=== PATIENT | female | born 1995 | race Caucasian/White ===

== ENCOUNTER 2021-12-14 13:07 | Inpatient (IN) ==
[2021-12-14] MEDS: LACTATED RINGER'S 1,000 ML IV PRN ×3 (13:15→21:31)
[2021-12-14] MEDS ORDERED: LIDOCAINE 1% LOCAL 20 ML VIAL INFIL PRN (13:37)
[2021-12-14] MEDS ORDERED: OXYTOCIN 30 UNITS/500 ML BAG IV PRN (13:37)
--- NOTE | 2021-12-14 14:06 | History & Physical Report ---
Date of Service December 14, 2021 Assessment & Plan (1) Threatened labor, antepartum: (2) Cervical incompetence: Plan: 26-year-old G1, P0 at 19 weeks and 2 days of gestation presenting with mild spotting and cramping, found to have cervix fully dilated with large amniotic bag bulging, heart rate present, Vital signs stable afebrile, Patient and her understands of findings and appropriately sad, Patient is in Trendelenburg position, expectant management for now, Continue to monitor closely All questions were answered History of Present Illness Primary Care Provider: NO PCP Patient is a 26-year-old G1, P0 at 19 weeks and 2 days of gestation who started to have minimal amount of pink spotting this morning with low back pain and mild cramping. She had ultrasound in the office which showed: Cervix cannot be measured. There is severe bulging membranes which are occupying the entire region of the visualized cervical canal. Findings w orrisome for ruptured membranes and impending delivery IMPRESSION Severe by bulging membranes into the cervical canal worrisome for impending rupture and possible delivery. Correlate clinically. She was not sent up here in ambulance. When she presented to labor and delivery she was comfortable with no complaints other than above which happened this morning. We placed her in Trendelenburg position and repeat the ultrasound bedside. heart rate is around 140s, multiple movement seen, vertex presentation, placenta is in posterior, cervix seems to be open with a large bulging of amniotic bag. Patient had no bleeding or leaking grossly on the external genitalia. After she calmed down she accepted gentle digital exam. With single finger I could see large tight bulging amniotic bag in the vagina, no cervix felt. We discussed the worrisome findings with her and her , they are understanding that delivery can happen anytime and fetus is not viable to survive. They called their screening specialist to come in from [place] for reassurance. Allergies Allergy/AdvReac Type Severity Reaction Status Date / Time amoxicillin Allergy Hives Verified 12/14/21 12:51 Home Medications Medication Instructions Recorded Confirmed Type vitamins no.144-folic 2 tab PO DAILY 12/14/21 12/14/21 History acid 400 mcg chewable tablet () Patient History Social History Smoking Status: Never smoker Preferred Language: Sinhala Feels Safe at Home: Yes [employer] History No h/o STD's, no h/o Chlamydia/ GC/ HSV Review of Systems as per Subjective / HPI Physical Exam Constitutional: WD/WN, vitals as above well developed, well nourished, cooperative and comfortable (Appropriately sad) Genitourinary: normal external appearance see HPI Results & Data ([facility]) Vital Signs (Past 12 Hours) Vital Signs Temp 12/14/21 13:13 37.1 C
[2021-12-14] MEDS ORDERED: BUTORPHANOL TARTRATE 1 MG/ML VIAL ONE (16:21)
[2021-12-14] MEDS: BUTORPHANOL TARTRATE 1 MG/ML VIAL IV PRN ×3 (18:32→23:55)
--- NOTE | 2021-12-14 19:52 | Obstetrical Progress Note ---
Date of Service December 14, 2021 Subjective Patient is reevaluated She had some blood show and was cramping, received Stadol for pain x2 doses. VE unchanged Bed side US: FHR 140's, fetus is moving and legs are in the bulging amniotic bag in vagina. Patient is appropriately sad VSS Afebrile Continue to monitor Results & Data ([facility]) Vital Signs (Past 12 Hours) Vital Signs Temp Pulse Resp BP 12/14/21 14:22 37.1 C 20 12/14/21 18:55 88 12/14/21 18:55 122/55 L 12/14/21 17:55 81 12/14/21 17:55 131/60 12/14/21 16:55 94 H 12/14/21 16:55 135/69 12/14/21 15:12 100 H 12/14/21 15:12 129/68 12/14/21 13:13 37.1 C
--- NOTE | 2021-12-15 00:18 | Obstetrical Progress Note ---
Date of Service December 15, 2021 Subjective Patient felt pressure VE: large bulging amniotic bag lower in vagina, no parts felt Earlier US showed legs in amniotic bag which looked larger, FHR 140's Continue to monitor closely Results & Data ([facility]) Vital Signs (Past 12 Hours) Vital Signs Temp Pulse Resp BP 12/14/21 14:22 37.1 C 20 12/14/21 23:55 16 12/14/21 23:55 36.7 C 16 12/14/21 23:55 78 12/14/21 23:55 131/60 12/14/21 22:55 83 12/14/21 22:55 123/56 L 12/14/21 21:55 88 12/14/21 21:55 116/57 L 12/14/21 21:36 18 12/14/21 21:36 36.7 C 18 12/14/21 20:56 83 12/14/21 20:56 119/56 L 12/14/21 19:55 78 12/14/21 19:55 122/59 L 12/14/21 18:55 88 12/14/21 18:55 122/55 L 12/14/21 17:55 81 12/14/21 17:55 131/60 12/14/21 16:55 94 H 12/14/21 16:55 135/69 12/14/21 15:12 100 H 12/14/21 15:12 129/68 12/14/21 13:13 37.1 C
[2021-12-15] MEDS: LACTATED RINGER'S 1,000 ML IV PRN (03:49)
--- NOTE | 2021-12-15 10:15 | Obstetrical Progress Note ---
Date of Service December 15, 2021 Assessment & Plan (1) Threatened labor, antepartum: (2) Cervical incompetence: Plan incompetent cervix, second trimester monitor closely No active intervention at this time. Admission and Anticipated Discharge Date Admission Date: December 14, 2021 Subjective Patient felt pressure VE: large bulging amniotic bag lower in vagina, no parts felt Earlier US showed legs in amniotic bag which looked larger, FHR 140's Continue to monitor closely Results & Data ([facility]) Vital Signs (Past 12 Hours) Vital Signs Temp Pulse Resp BP 12/15/21 09:55 91 H 139/61 12/15/21 08:56 110 H 137/82 12/15/21 07:55 83 116/55 L 12/15/21 07:30 20 12/15/21 07:30 37.0 C 20 12/15/21 07:27 88 131/63 12/15/21 06:55 88 122/56 L 12/15/21 05:55 85 116/59 L 12/15/21 04:55 95 H 117/57 L 12/15/21 03:56 36.7 C 70 16 118/53 L 12/15/21 02:55 90 130/56 L 12/15/21 01:57 84 112/53 L 12/15/21 00:55 87 120/56 L 12/14/21 23:55 16 12/14/21 23:55 36.7 C 16 12/14/21 23:55 78 12/14/21 23:55 131/60 12/14/21 22:55 83 12/14/21 22:55 123/56 L
[2021-12-15] MEDS ORDERED: OXYTOCIN 30 UNITS/500 ML BAG IV PRN (11:53)
[2021-12-15] MEDS ORDERED: LIDOCAINE 1% LOCAL 20 ML VIAL INFIL PRN (11:53)
[2021-12-15] MEDS: LACTATED RINGER'S 1,000 ML IV SCH (12:15)
[2021-12-15] MEDS: BUTORPHANOL TARTRATE 1 MG/ML VIAL IV PRN ×2 (19:12→22:38)
[2021-12-16] MEDS: BUTORPHANOL TARTRATE 1 MG/ML VIAL IV PRN ×7 (01:24→19:37)
--- NOTE | 2021-12-16 09:51 | Obstetrical Progress Note ---
Date of Service December 16, 2021 Assessment & Plan (1) Threatened labor, antepartum: (2) Cervical incompetence: Plan monitor closely pain meds as needed by the pt. regular diet Colace/stool softener Admission and Anticipated Discharge Date Admission Date: December 14, 2021 Subjective Assessment & Plan (1) Threatened labor, antepartum: (2) Cervical incompetence: Plan incompetent cervix, second trimester monitor closely No active intervention at this time. Admission and Anticipated Discharge Date Admission Date: December 14, 2021 Subjective Patient felt pressure VE: large bulging amniotic bag lower in vagina, no parts felt Earlier US showed legs in amniotic bag which looked larger, FHR 140's Continue to monitor closely Results & Data ([place]) Vital Signs (Past 12 Hours) Vital Signs C Temp Pulse Resp BP 12/15/21 09:55 91 H 139/61 12/15/21 08:56 110 H 137/82 12/15/21 07:55 83 116/55 L 12/15/21 07:30 20 12/15/21 07:30 37.0 C 12/15/21 07:27 88 131/63 12/15/21 06:55 88 122/56 L 12/15/21 05:55 85 116/59 L 12/15/21 04:55 95 H 117/57 L 12/15/21 03:56 36.7 C 70 16 118/53 L 12/15/21 02:55 90 130/56 L 12/15/21 01:57 84 112/53 L 12/15/21 00:55 87 120/56 L 12/14/21 23:55 16 12/14/21 23:55 36.7 C 16 12/14/21 23:55 78 12/14/21 23:55 131/60 12/14/21 22:55 83A 12/14/21 22:55 123/56 L Results & Data ([place]) Vital Signs (Past 12 Hours) Vital Signs Temp Pulse Resp BP 12/16/21 07:40 36.9 C 20 12/16/21 07:40 81 117/56 L 12/16/21 04:04 16 12/16/21 04:04 36.7 C 73 16 129/60 12/15/21 22:34 37.0 C 83 16 124/64
[2021-12-16 15:54] LABS: Hematocrit (blood only) 37.8 % (34.1-44.9); Hemoglobin 12.9 g/dl (12.0-16.0); Mean Corpuscular Hemoglobin 30.9 pg (25.0-34.0); Mean Corpuscular Hgb Conc 34.1 g/dL (32.0-36.0); Mean Corpuscular Volume 90.4 fL (80.0-100.0); Platelet Count 210 K/uL (130-400); RDW Coefficient of Variation 14.3 % (11.5-14.5); RDW Standard Deviation 47.8 fL (36.4-46.3); Red Blood Count 4.18 M/uL (3.93-5.22); White Blood Count 13.15 K/ul (4.8-10.8)
[2021-12-16] MEDS: DOCUSATE SODIUM 100 MG CAP PO SCH ×2 (16:08→21:23)
[2021-12-16] MEDS ORDERED: ZOLPIDEM TARTRATE 10 MG TAB PO PRN (19:55)
[2021-12-17] MEDS: BUTORPHANOL TARTRATE 1 MG/ML VIAL IV PRN ×6 (02:49→21:20)
[2021-12-17] MEDS: DOCUSATE SODIUM 100 MG CAP PO SCH ×2 (09:09→21:21)
--- NOTE | 2021-12-17 10:00 | Obstetrical Progress Note ---
Date of Service December 17, 2021 Assessment & Plan Admission and Anticipated Discharge Date Admission Date: December 14, 2021 Subjective Patient is seen in her room. She feels well, complains other than being sad. No contractions, cramping, abdominal or back pain. No leakage of fluid or vaginal bleeding. No headaches, change in her vision, nausea vomiting, fever or chills. She has been eating normally and drinking. She has been voiding without difficulty but has not moved her bowels yet. She used to get constipated and use Colace and MiraLAX. She feels baby move. I offered her ultrasound and she accepted. Bedside ultrasound revealed heart rate of 140s, extremities and trunk is in the sac in the vagina, head is in the uterus. Fetus is moving. I spoke with MFM at [facility] and they recommended expectant management until 22 weeks and 5 days if she will stay . Start steroids and transfer to them. Patient understands all and declines mental health consultation. Encouraged to move her extremities, it is okay to move her bowels All questions were answered. Results & Data ([facility]) Vital Signs (Past 12 Hours) Vital Signs Temp Pulse Resp BP 12/17/21 08:00 36.9 C 20 12/17/21 05:23 36.8 C 16 12/17/21 08:00 76 119/56 L 12/17/21 05:22 76 106/53 L 12/16/21 23:17 36.8 C 71 18 112/51 L
[2021-12-17] MEDS: PRENATAL VITAMIN 1 TAB PO SCH (10:17)
[2021-12-17] MEDS: POLYETHYLENE (MIRALAX) 17 GM PACK PO SCH (10:58)
[2021-12-17] MEDS: ACETAMINOPHEN 325 MG TAB PO PRN ×4 (11:01→23:54)
[2021-12-17 12:35] LABS: Appearance Urine Clear (Clear); Bacteria Urine Automated 1+ (Negative); Bilirubin Urine Negative (Negative); Blood Urine 2+ (Negative); Color Urine Yellow; Epithelial Cell Urine Auto >30 /lpf (0-5); Glucose Urine UA 1+ (Negative); Ketones Urine Negative (Negative); Leukocyte Esterase Urine 2+ (Negative); Nitrite Urine Negative (Negative); Protein Urine Negative (Negative); RBC Urine Automated 0-4 /hpf (0-4); Specific Gravity Urine 1.008 (1.000-1.030); Urobilinogen Urine Negative (Negative); pH Urine 6.5 (4.5-7.5)
[2021-12-17] MEDS ORDERED: bisacodyL 5 MG TABEC PO PRN (16:50)
--- NOTE | 2021-12-17 16:56 | Obstetrical Progress Note ---
Date of Service December 17, 2021 Assessment & Plan Admission and Anticipated Discharge Date Admission Date: December 14, 2021 Subjective Patient c/o gas pain No VB/ LOF/ Vaginal nor rectal pressure Has been passing gas but not moved her bowels yet Has been tolerating regular diet u/a suggesting UTI Allergic to Amoxicillin, rash but has used Keflex in the past Abd soft, suprapubic tenderness+ Perineum intact no bulge or Plan to add Dulcolax for constipation and Keflex for UTI PO Pain meds Continue to monitor closely Results & Data ([facility]) Vital Signs (Past 12 Hours) Vital Signs Temp Pulse Resp BP 12/17/21 08:00 36.9 C 20 12/17/21 05:23 36.8 C 16 12/17/21 12:16 36.8 C 80 20 118/62 12/17/21 08:00 76 119/56 L 12/17/21 05:22 76 106/53 L
[2021-12-17] MEDS: traMADol HCL 50 MG TABLET PO PRN ×2 (18:11→21:52)
[2021-12-17] MEDS: cephALEXin 500 MG CAP PO SCH (21:26)
--- NOTE | 2021-12-18 00:30 | Obstetrical Progress Note ---
Date of Service December 18, 2021 Assessment & Plan Admission and Anticipated Discharge Date Admission Date: December 14, 2021 Subjective Patient has been having more pain for the last hour or so, now she is rating is 10 out of 10 we did not feel pressure in vagina and rectum. She tried to void but unable she did not pass and a small amount of pink discharge on the bedpan? From vagina which was positive on the nitrazine paper. Patient is very anxious and crying and asking multiple questions and states I do not know what to do/I do know what can happen. Myself and nursing staff has been with her all the time answering her questions and reassuring with their sincerity. I performed a bedside ultrasound which showed that the uterus has placenta and it, no parts in the uterine cavity, fetus is seen complete the vagina, heart rate is about 130s. I offered her vaginal exam and she accepted. Within both nurses holding her hands and reassuring her I performed a gentle 1 finger digital exam eleazar soft smaller bag in the lower vagina with parts in it, head/small parts. We discussed the option of pain management with either IV narcotics or epidural or spinal or conscious sedation. We discussed option of waiting versus pushing and delivering the baby and then placenta. Patient states she is ready, she is done and wants to push and deliver the baby. After long discussion patient decided to get epidural and then proceed with delivery. We will transfer her to labor and delivery, anesthesia and obtain more blood work. All questions were answered. Results & Data ([facility]) Vital Signs (Past 12 Hours) Vital Signs Temp Pulse Resp BP Pulse Ox O2 Del Method 12/17/21 19:30 36.6 C 89 18 110/68 96 Room Air 12/17/21 17:45 37.1 C 76 18 108/67 97 Room Air
[2021-12-18] MEDS ORDERED: fentaNYL citrate 100 MCG/2 ML VIAL ONE (00:36)
[2021-12-18] MEDS ORDERED: BUPIVACAINE 0.25% 30 ML VIAL ONE (00:36)
[2021-12-18] MEDS ORDERED: SODIUM CHLORIDE 0.9% INJ 10 ML VIAL ONE (00:36)
[2021-12-18] MEDS ORDERED: ePHEDrine sulfate 50 MG/ML AMP ONE (00:36)
[2021-12-18] MEDS ORDERED: LIDOCAINE 2%/EPINEPHRINE 1:200,000 20 ML SDV ONE (00:37)
[2021-12-18] MEDS ORDERED: fentaNYL 2MCG/ML ROPIVACAINE 1.25MG/ML 100 ML BAG EPI ONE (00:37)
[2021-12-18 00:52] LABS: Basophils # (auto) 0.06 K/uL (0-0.2); Basophils % (auto) 0.4 %; Eosinophils # (auto) 0.11 K/uL (0-0.50); Eosinophils % (auto) 0.7 %; Hematocrit (blood only) 41.7 % (34.1-44.9); Hemoglobin 14.3 g/dl (12.0-16.0); Immature Granulocytes # (auto) 0.07 K/uL (0.00-0.02); Immature Granulocytes % (auto) 0.5 %; Lymphocytes # (auto) 2.11 K/uL (1.2-3.4); Lymphocytes % (auto) 14.1 %; Mean Corpuscular Hemoglobin 30.5 pg (25.0-34.0); Mean Corpuscular Hgb Conc 34.3 g/dL (32.0-36.0); Mean Corpuscular Volume 88.9 fL (80.0-100.0); Mean Platelet Volume 10.7 fL (9.4-12.3); Monocytes # (auto) 0.88 K/uL (0.24-0.82); Monocytes % (auto) 5.9 %; Neutrophils # (auto) 11.74 K/uL (1.4-6.5); Neutrophils % (auto) 78.4 %; Platelet Count 235 K/uL (130-400); RDW Coefficient of Variation 14.1 % (11.5-14.5); RDW Standard Deviation 45.5 fL (36.4-46.3); Red Blood Count 4.69 M/uL (3.93-5.22); White Blood Count 14.97 K/ul (4.8-10.8)
[2021-12-18] MEDS: LACTATED RINGER'S 1,000 ML IV SCH ×2 (00:53→03:11)
[2021-12-18] MEDS ORDERED: LORazepam 0.25 MG in SYRINGE 0 ML IV STA (00:58)
[2021-12-18 01:03] LABS: Partial Thromboplastin Time 27.5 Seconds (21.0-31.0); Prothrombin Time 10.5 Seconds (9.0-12.0)
[2021-12-18 01:09] LABS: Albumin Level 3.7 gm/dl (3.4-5.0); BUN Creatinine Ratio 13.3 (10-20); Bilirubin,Total 0.4 mg/dl (0.2-1.0); Calcium 9.3 mg/dl (8.5-10.1); Creatinine Clr Calc Pharmacy 167.2 ml/min; Est GFR (African American) 147.9 ml/min; Est GFR (Non-African American) 127.6 ml/min; Globulin 3.7 gm/dl (2.5-4.0); Potassium 3.6 mmol/L (3.5-5.1); Total Protein 7.4 gm/dl (6.0-8.3)
[2021-12-18] MEDS ORDERED: NALOXONE HCL 0.4 MG/1 ML VIAL/CARP IV PRN (01:31)
[2021-12-18] MEDS ORDERED: diphenhydrAMINE 50 MG/ML VIAL IV PRN ×2 (01:31→01:58)
[2021-12-18] MEDS ORDERED: ONDANSETRON INJ 2 MG/ML 2 ML VIAL IV PRN ×2 (01:31→01:58)
[2021-12-18] MEDS ORDERED: fentaNYL 2MCG/ML ROPIVACAINE 1.25MG/ML 100 ML BAG EPI PRN (01:31)
[2021-12-18] MEDS ORDERED: NALOXONE HCL 1 MG in SODIUM CHLORIDE 0.9% 1000ML 1,000 ML IV PRN (01:31)
[2021-12-18] MEDS ORDERED: NALBUPHINE HCL INJ 10 MG/ML AMP IV PRN (01:31)
[2021-12-18] MEDS ORDERED: ePHEDrine sulfate 50 MG/ML AMP IV PRN (01:31)
--- NOTE | 2021-12-18 01:31 | Anesthesiology Consultation ---
Date of Service December 18, 2021 Assessment & Plan ASA ASA2 Proposed Anesthesia Anesthesia Type: Labor Epidural Risk / Benefits Reviewed With: PT / POA / Parent / Guardian, Accepts Plan and Informed Consent Obtained History Height/Weight Height: 5 ft 7 in Weight: 90.718 kg Allergies Allergy/AdvReac Type Severity Reaction Status Date / Time amoxicillin Allergy Hives Verified 12/14/21 12:51 Medications Home Medications Medication Instructions Recorded Confirmed Last Taken vitamins no.144-folic 2 tab PO DAILY 12/14/21 12/14/21 12/13/21 21:00 acid 400 mcg chewable tablet () Active Medications Generic Name Dose Route Start Last Admin Trade Name Freq PRN Reason Stop Dose Admin Acetaminophen 650 mg 12/17/21 10:00 12/17/21 23:54 Acetaminophen 325 Mg Tab PO 01/16/22 09:59 650 mg Q4H PRN Administration Pain Butorphanol Tartrate 1 mg 12/14/21 16:19 12/17/21 21:20 Butorphanol Tartrate 1 Mg/Ml Vial IV 01/13/22 16:18 1 mg Q2R PRN Administration Pain Cephalexin HCl 500 mg 12/17/21 21:00 12/17/21 21:26 Cephalexin 500 Mg Cap PO 12/22/21 20:59 500 mg Q6H MAXIMO Administration Docusate Sodium 100 mg 12/16/21 16:00 12/17/21 21:21 Docusate Sodium 100 Mg Cap PO 01/15/22 15:59 100 mg BID MAXIMO Administration Lactated Ringer's 1,000 mls @ 125 mls/hr 12/15/21 12:15 12/18/21 00:53 Lr IV 01/14/22 12:14 999 mls/hr .Q8H MAXIMO Administration Polyethylene Glycol 17 gm 12/17/21 10:15 12/17/21 10:58 Polyethylene (Miralax) 17 Gm Pack PO 01/16/22 10:14 17 gm DAILY MAXIMO Administration Prenat Multivit/Tire Buffer/Iron/Folic Ac 1 tab 12/17/21 10:15 12/17/21 10:17 Vitamin 1 Tab PO 01/16/22 10:14 1 tab QAM MAXIMO Administration Tramadol HCl 50 mg 12/17/21 16:49 12/17/21 21:52 Tramadol Hcl 50 Mg Tablet PO 01/16/22 16:48 50 mg Q4H PRN Administration Pain Zolpidem Tartrate 10 mg 12/16/21 19:55 12/16/21 23:17 Zolpidem Tartrate 10 Mg Tab PO 01/15/22 19:54 10 mg HS PRN Administration Sleep Exercise / Class Metabolic Activity II 4-5 Yardwork/Stairs/Walk up hill Past Surgical History Surgical History Hx of shoulder surgery right shoulder 2015 [place] teeth removed 2017 Past Anesthesia History No Hx of Anesthesia Complications and No Family Hx of Anesthesia Complications History of PONV No Hx of PONV and No Hx of Motion Sickness Social History Smoking Status: Never smoker Hx Alcohol Use: No Hx Substance Use: No Review of Systems denies fever/cough/ colds/ chest pain/ SOB/ MORA denies MORA Physical Exam Vital Signs Last Vital Signs Temp 37.0 C 12/18/21 00:41 Pulse 84 12/18/21 01:25 Resp 20 12/18/21 00:41 BP 130/60 12/18/21 01:25 Pulse Ox 100 12/18/21 01:25 O2 Del Method 12/17/21 19:30 ENMT Mouth: no TMJ abnormality and no dentition abnormality Thyromental Distance: > or= 3.5 Finger Breadths Mallampati Class: II Neck neck extension not limited Respiratory normal respiratory effort; no respiratory distress Auscultation: lungs clear to auscultation bilaterally Cardiovascular Rate/Rhythm: regular rate and regular rhythm Neurologic moves all extremities Psychiatric Orientation: alert and oriented x 3 Testing Laboratory Results 12/18/21 00:39 12/18/21 00:39 PT 10.5 Seconds (9.0-12.0) 12/18/21 00:39 INR 1.0 (0.9-1.1) 12/18/21 00:39 APTT 27.5 Seconds (21.0-31.0) 12/18/21 00:39 Urine Color Yellow 12/17/21 Unknown Urine Appearance Clear (Clear) 12/17/21 Unknown Urine pH 6.5 (4.5-7.5) 12/17/21 Unknown Ur Specific [place] 1.008 (1.000-1.030) 12/17/21 Unknown Urine Protein Negative (Negative) 12/17/21 Unknown Urine Glucose (UA) 1+ (Negative) H 12/17/21 Unknown Urine Ketones Negative (Negative) 12/17/21 Unknown Urine Nitrite Negative (Negative) 12/17/21 Unknown Ur Leukocyte Esterase 2+ (Negative) H 12/17/21 Unknown Urine WBC (Auto) 5-10 /hpf (0-5) H 12/17/21 Unknown Urine RBC (Auto) 0-4 /hpf (0-4) 12/17/21 Unknown U Hyaline Cast (Auto) 1-5 /lpf (0-5) 12/17/21 Unknown U Epithel Cells (Auto) >30 /lpf (0-5) H 12/17/21 Unknown Urine Bacteria (Auto) 1+ (Negative) H 12/17/21 Unknown Blood Type A Positive 12/14/21 12:54 Antibody Screen NEGATIVE 12/14/21 12:54
[2021-12-18] MEDS ORDERED: LORazepam 0.5 MG in SYRINGE 0 ML IV PRN (01:57)
--- NOTE | 2021-12-18 01:57 | Obstetrical Progress Note ---
Date of Service December 18, 2021 Assessment & Plan Admission and Anticipated Discharge Date Admission Date: December 14, 2021 Subjective Patient is reevaluated. She has received epidural for pain and now comfortable. She does not feel urge to push. No LOF/VB She does not want pelvic exam and desires expectant management for now. Earlier perineum Nitrazine test was negative. Offered her Lorazepam for anxiety but she declined. She desires to rest for now. Lab Results 12/14/21 12/16/21 12/17/21 Range/Units 12:54 15:45 Unknown WBC 13.15 H (4.8-10.8) K/ul RBC 4.18 (3.93-5.22) M/uL Hgb 12.9 (12.0-16.0) g/dl Hct 37.8 (34.1-44.9) % MCV 90.4 (80.0-100.0) fL MCH 30.9 (25.0-34.0) pg MCHC 34.1 (32.0-36.0) g/dL RDW Std Deviation 47.8 H (36.4-46.3) fL RDW Coeff of Rod 14.3 (11.5-14.5) % Plt Count 210 (130-400) K/uL MPV 11.0 (9.4-12.3) fL Immature Gran % (Auto) % Neut % (Auto) % Lymph % (Auto) % [place] % (Auto) % Eos % (Auto) % Baso % (Auto) % Neut # (Auto) (1.4-6.5) K/uL Lymph # (Auto) (1.2-3.4) K/uL [place] # (Auto) (0.24-0.82) K/uL Eos # (Auto) (0-0.50) K/uL Baso # (Auto) (0-0.2) K/uL Immature Gran # (Auto) (0.00-0.02) K/uL PT (9.0-12.0) Seconds INR (0.9-1.1) APTT (21.0-31.0) Seconds PTT Ratio Sodium (136-145) mmol/L Potassium (3.5-5.1) mmol/L Chloride (98-107) mmol/L Carbon Dioxide (21-32) mmol/L Anion Gap (3-11) BUN (6-23) mg/dl Creatinine (0.6-1.2) mg/dl Est Cr Clr Drug Dosing ml/min Est GFR ( Amer) ml/min Est GFR (Non-Af Amer) ml/min BUN/Creatinine Ratio (10-20) Glucose (70-99(Fasting)) mg/dl Lactate (0.4-2.0) mmol/L Calcium (8.5-10.1) mg/dl Total Bilirubin (0.2-1.0) mg/dl AST (13-39) U/L ALT (7-52) U/L Alkaline Phosphatase (34-104) U/L Total Protein (6.0-8.3) gm/dl Albumin (3.4-5.0) gm/dl Globulin (2.5-4.0) gm/dl Albumin/Globulin Ratio (0.9-2) Urine Color Yellow Urine Appearance Clear (Clear) Urine pH 6.5 (4.5-7.5) Ur Specific [place] 1.008 (1.000-1.030) Urine Protein Negative (Negative) Urine Glucose (UA) 1+ H (Negative) Urine Ketones Negative (Negative) Urine Blood 2+ H (Negative) Urine Nitrite Negative (Negative) Urine Bilirubin Negative (Negative) Urine Urobilinogen Negative (Negative) Ur Leukocyte Esterase 2+ H (Negative) Urine WBC (Auto) 5-10 H (0-5) /hpf Urine RBC (Auto) 0-4 (0-4) /hpf U Hyaline Cast (Auto) 1-5 (0-5) /lpf U Epithel Cells (Auto) >30 H (0-5) /lpf Urine Bacteria (Auto) 1+ H (Negative) Blood Type A Positive Antibody Screen NEGATIVE 12/18/21 12/18/21 12/18/21 Range/Units 00:39 00:39 00:39 WBC 14.97 H (4.8-10.8) K/ul RBC 4.69 (3.93-5.22) M/uL Hgb 14.3 (12.0-16.0) g/dl Hct 41.7 (34.1-44.9) % MCV 88.9 (80.0-100.0) fL MCH 30.5 (25.0-34.0) pg MCHC 34.3 (32.0-36.0) g/dL RDW Std Deviation 45.5 (36.4-46.3) fL RDW Coeff of Rod 14.1 (11.5-14.5) % Plt Count 235 (130-400) K/uL MPV 10.7 (9.4-12.3) fL Immature Gran % (Auto) 0.5 % Neut % (Auto) 78.4 % Lymph % (Auto) 14.1 % [place] % (Auto) 5.9 % Eos % (Auto) 0.7 % Baso % (Auto) 0.4 % Neut # (Auto) 11.74 H (1.4-6.5) K/uL Lymph # (Auto) 2.11 (1.2-3.4) K/uL [place] # (Auto) 0.88 H (0.24-0.82) K/uL Eos # (Auto) 0.11 (0-0.50) K/uL Baso # (Auto) 0.06 (0-0.2) K/uL Immature Gran # (Auto) 0.07 H (0.00-0.02) K/uL PT 10.5 (9.0-12.0) Seconds INR 1.0 (0.9-1.1) APTT 27.5 (21.0-31.0) Seconds PTT Ratio 1.0 Sodium (136-145) mmol/L Potassium (3.5-5.1) mmol/L Chloride (98-107) mmol/L Carbon Dioxide (21-32) mmol/L Anion Gap (3-11) BUN (6-23) mg/dl Creatinine (0.6-1.2) mg/dl Est Cr Clr Drug Dosing ml/min Est GFR ( Amer) ml/min Est GFR (Non-Af Amer) ml/min BUN/Creatinine Ratio (10-20) Glucose (70-99(Fasting)) mg/dl Lactate 1.1 (0.4-2.0) mmol/L Calcium (8.5-10.1) mg/dl Total Bilirubin (0.2-1.0) mg/dl AST (13-39) U/L ALT (7-52) U/L Alkaline Phosphatase (34-104) U/L Total Protein (6.0-8.3) gm/dl Albumin (3.4-5.0) gm/dl Globulin (2.5-4.0) gm/dl Albumin/Globulin Ratio (0.9-2) Urine Color Urine Appearance (Clear) Urine pH (4.5-7.5) Ur Specific [place] (1.000-1.030) Urine Protein (Negative) Urine Glucose (UA) (Negative) Urine Ketones (Negative) Urine Blood (Negative) Urine Nitrite (Negative) Urine Bilirubin (Negative) Urine Urobilinogen (Negative) Ur Leukocyte Esterase (Negative) Urine WBC (Auto) (0-5) /hpf Urine RBC (Auto) (0-4) /hpf U Hyaline Cast (Auto) (0-5) /lpf U Epithel Cells (Auto) (0-5) /lpf Urine Bacteria (Auto) (Negative) Blood Type Antibody Screen 12/18/21 Range/Units 00:39 WBC (4.8-10.8) K/ul RBC (3.93-5.22) M/uL Hgb (12.0-16.0) g/dl Hct (34.1-44.9) % MCV (80.0-100.0) fL MCH (25.0-34.0) pg MCHC (32.0-36.0) g/dL RDW Std Deviation (36.4-46.3) fL RDW Coeff of Rod (11.5-14.5) % Plt Count (130-400) K/uL MPV (9.4-12.3) fL Immature Gran % (Auto) % Neut % (Auto) % Lymph % (Auto) % [place] % (Auto) % Eos % (Auto) % Baso % (Auto) % Neut # (Auto) (1.4-6.5) K/uL Lymph # (Auto) (1.2-3.4) K/uL [place] # (Auto) (0.24-0.82) K/uL Eos # (Auto) (0-0.50) K/uL Baso # (Auto) (0-0.2) K/uL Immature Gran # (Auto) (0.00-0.02) K/uL PT (9.0-12.0) Seconds INR (0.9-1.1) APTT (21.0-31.0) Seconds PTT Ratio Sodium 136 (136-145) mmol/L Potassium 3.6 (3.5-5.1) mmol/L Chloride 103 (98-107) mmol/L Carbon Dioxide 24 (21-32) mmol/L Anion Gap 9 (3-11) BUN 8 (6-23) mg/dl Creatinine 0.60 (0.6-1.2) mg/dl Est Cr Clr Drug Dosing 167.2 ml/min Est GFR ( Amer) 147.9 ml/min Est GFR (Non-Af Amer) 127.6 ml/min BUN/Creatinine Ratio 13.3 (10-20) Glucose 103 H (70-99(Fasting)) mg/dl Lactate (0.4-2.0) mmol/L Calcium 9.3 (8.5-10.1) mg/dl Total Bilirubin 0.4 (0.2-1.0) mg/dl AST 12 L (13-39) U/L ALT 21 (7-52) U/L Alkaline Phosphatase 73 (34-104) U/L Total Protein 7.4 (6.0-8.3) gm/dl Albumin 3.7 (3.4-5.0) gm/dl Globulin 3.7 (2.5-4.0) gm/dl Albumin/Globulin Ratio 1.0 (0.9-2) Urine Color Urine Appearance (Clear) Urine pH (4.5-7.5) Ur Specific [place] (1.000-1.030) Urine Protein (Negative) Urine Glucose (UA) (Negative) Urine Ketones (Negative) Urine Blood (Negative) Urine Nitrite (Negative) Urine Bilirubin (Negative) Urine Urobilinogen (Negative) Ur Leukocyte Esterase (Negative) Urine WBC (Auto) (0-5) /hpf Urine RBC (Auto) (0-4) /hpf U Hyaline Cast (Auto) (0-5) /lpf U Epithel Cells (Auto) (0-5) /lpf Urine Bacteria (Auto) (Negative) Blood Type Antibody Screen VSS Afebrile Gil to drain bladder Keflex PO Continue to monitor closely. Results & Data ([facility]) Vital Signs (Past 12 Hours) Vital Signs Temp Pulse Pulse Resp BP BP Pulse Ox 12/17/21 19:30 36.6 C 89 18 110/68 96 12/17/21 17:45 37.1 C 76 18 108/67 97 12/18/21 01:50 82 99 12/18/21 01:45 90 12/18/21 01:45 77 137/68 100 12/18/21 01:40 84 100 12/18/21 01:35 97 H 100 12/18/21 01:30 81 132/63 98 12/18/21 01:25 100 12/18/21 01:25 84 12/18/21 01:25 82 130/60 12/18/21 01:23 82 122/80 12/18/21 01:20 91 H 100 12/18/21 01:15 96 H 100 12/18/21 01:10 95 H 100 12/18/21 01:05 91 H 100 12/18/21 01:00 89 100 12/18/21 00:55 89 100 12/18/21 00:50 88 100 12/18/21 00:45 89 100 12/18/21 00:41 37.0 C 90 20 137/74 O2 Del Method 12/17/21 19:30 Room Air 12/17/21 17:45 Room Air 12/18/21 01:50 12/18/21 01:45 12/18/21 01:45 12/18/21 01:40 12/18/21 01:35 12/18/21 01:30 12/18/21 01:25 12/18/21 01:25 12/18/21 01:25 12/18/21 01:23 12/18/21 01:20 12/18/21 01:15 12/18/21 01:10 12/18/21 01:05 12/18/21 01:00 12/18/21 00:55 12/18/21 00:50 12/18/21 00:45 12/18/21 00:41
[2021-12-18] MEDS: cephALEXin 500 MG CAP PO SCH (03:27)
--- NOTE | 2021-12-18 10:22 | Delivery Summary ---
Vaginal Delivery Summary Date of Service December 18, 2021 Vaginal Delivery Summary Delivery Note male in vertex presentation at 19.5 weeks pre-viable and comfort measures were done. Apgars to be determined. Baby with no visible congenital malformations noted. Final sponge and instrument count are corrected. Placenta delivered spontaneously and intact. No tears. EBL 100 ml. Mother stable and baby with dad for comfort care only.
[2021-12-18] MEDS ORDERED: DIPHTHERIA/TETANUS/PERTUSSIS 0.5 ML SYR/VIAL IM ONE (11:40)
[2021-12-18] MEDS ORDERED: ACETAMINOPHEN 325 MG TAB PO PRN (11:40)
[2021-12-18] MEDS ORDERED: HYDROCORTISONE ACETATE 25 MG SUPP PR PRN (11:40)
[2021-12-18] MEDS ORDERED: BENZOCAINE 20% AER SPR 82.5 GM CAN EXT PRN (11:40)
[2021-12-18] MEDS ORDERED: OXYTOCIN 30 UNITS/500 ML BAG IV PRN (11:40)
[2021-12-18] MEDS ORDERED: bisacodyL 10 MG SUPP PR PRN (11:40)
[2021-12-18] MEDS ORDERED: IBUPROFEN 600 MG TAB PO PRN (11:40)
--- NOTE | 2021-12-18 11:40 | Anesthesia Procedure Note ---
Date of Service December 18, 2021 Anesthesia Post Epidural Note Vital Signs Vital Signs: Temp Pulse Resp BP Pulse Ox O2 Del Method 36.9 C 86 20 133/67 97 12/18/21 07:00 12/18/21 11:25 12/18/21 07:00 12/18/21 11:25 12/18/21 09:50 12/18/21 07:00 Pain Intensity Back: Pain Intensity: 0 Notes Mental Status: alert / awake / arousable and participated in evaluation Nausea / Vomiting: adequately controlled Pain: adequately controlled Airway Patency, RR, SpO2: stable & adequate BP & HR: stable & adequate Hydration State: stable & adequate Neuraxial Anesthesia: was administered and sensory block resolved Anesthetic Complications: no major complications apparent Epidural: Removed without complications and With tip intact
[2021-12-18] MEDS: DOCUSATE SODIUM 100 MG CAP PO SCH ×2 (13:56→22:52)
[2021-12-18] MEDS: PRENATAL VITAMIN 1 TAB PO SCH (13:56)
[2021-12-18] MEDS: POLYETHYLENE (MIRALAX) 17 GM PACK PO SCH (13:56)
[2021-12-18] MEDS ORDERED: DOCUSATE SODIUM 100 MG CAP PO SCH (21:00)
[2021-12-19 06:50] LABS: Hematocrit (blood only) 32.2 % (34.1-44.9); Mean Corpuscular Hemoglobin 30.6 pg (25.0-34.0); Mean Corpuscular Hgb Conc 34.2 g/dL (32.0-36.0); Mean Corpuscular Volume 89.7 fL (80.0-100.0); Mean Platelet Volume 10.8 fL (9.4-12.3); Platelet Count 181 K/uL (130-400); Red Blood Count 3.59 M/uL (3.93-5.22); White Blood Count 9.37 K/ul (4.8-10.8)
[2021-12-19] MEDS ORDERED: FERROUS SULFATE 325 MG TAB PO SCH (08:00)
[2021-12-19] MEDS ORDERED: PRENATAL VITAMIN 1 TAB PO SCH (08:00)
--- NOTE | 2021-12-19 08:05 | Obstetrical Progress Note ---
Date of Service December 19, 2021 Assessment & Plan (1) demise: s/p demise at 17 + weeks pt doing well d/c home with instructions today Results & Data ([facility]) Vital Signs (Past 12 Hours) Vital Signs Temp Pulse Resp BP 12/19/21 04:15 36.8 C 16 12/19/21 00:30 36.7 C 16 12/19/21 04:18 71 111/58 L 12/19/21 00:35 70 115/61
[2021-12-19] MEDS ORDERED: NON-FORMULARY MEDICATION (Prenatal No.144-Folic Acid [Prenatal] 400 mcg Tablet,Chewable) PO SCH (09:00)
[2021-12-19] MEDS ORDERED: bisacodyL 5 MG TABEC PO SCH (20:00)
--- NOTE | 2021-12-20 01:45 | Discharge Summary (DS) ---
DATE OF ADMISSION: 12/14/2021. DATE OF DISCHARGE: 12/19/2021. CHIEF COMPLAINT/HISTORY OF PRESENT ILLNESS: This is a 26-year-old G1, P0 at 19 weeks and 2 days who presented to labor and delivery through the ER for labor evaluation. She was found to be ful ly dilated. The patient was admitted and went on to deliver. demise on 12/18/2021. The patie nt has done well and is being discharged home today in stable condition. PAST MEDICAL HISTORY: No history of diabetes, hypertension, or asthma. PAST SURGICAL HISTORY: History of shoulder surgery and dental surgery. FAMILY HISTORY: Noncontributory. SOCIAL HISTORY: The patient denies tobacco, drug or alcohol use. ALLERGIES: Amoxicillin. REVIEW OF SYSTEMS: Negative except as dictated in the HPI. GENERAL: Well-developed, well-nourished white female in no acute distress. VITAL SIGNS: Blood pressure 111/58, pulse 71, respirations 16, temperature 36.8. HEART: S1 and S2, regular rhythm and rate. LUNGS: Clear to auscultation bilaterally. ABDOMEN: Nontender, nondistended. Uterus is firm. EXTREMITIES: No cyanosis, clubbing or edema. LABORATORY DATA: Hemoglobin is 11.0, hematocrit 32.2, platelets 181. CONDITION ON DISCHARGE: Stable. OPERATIONS: None. DISCHARGE DIAGNOSES: Status post demise for cervical incompetence at 19 weeks' gestation. PLAN ON DISCHARGE: The patient is discharged home with instructions regarding activity, diet, and [facility] appointment. Job ID: [id number]
== END 2021-12-19 12:40 | disposition home or self-care (01) | DRG 805 ==
LOC: OPB 13:07 → 4S1 13:13 → 4E2 12-17 18:19 → 4S1 12-18 00:32

== ENCOUNTER 2024-02-03 09:14 | Inpatient (IN) ==
[2024-02-03] MEDS ORDERED: LIDOCAINE 1% LOCAL 20 ML VIAL INFIL PRN (09:59)
[2024-02-03] MEDS ORDERED: OXYTOCIN 30 UNITS/NSS 30 UNITS/500 ML BAG IV PRN ×2 (09:59→17:01)
[2024-02-03] MEDS: SODIUM CHLORIDE 0.9% 1,000 ML IV SCH (10:05)
--- NOTE | 2024-02-03 10:12 | History & Physical Report ---
Date of Service February 03, 2024 Assessment & Plan (1) : Plan: Admit to L&D. EFM/toco, hourly glucose. OK for epidural when she desires. History of Present Illness Chief Complaint: labor Primary Care Provider: CHRISTINA Colin 28yo @ 39 02/23, contractions overnight. + movement, small amount of vaginal bleeding. No leaking. and Delivery Plans Incompetent cervix with delivery/ demise at 19weeks in prior (2021) *Cerclage scheduled 08/11, note says no further cervical lengths after Rubella non-immune offer vaccine Hep B non-immune *offer Hep B vaccine series Obesity (BMI between 35-39 @ beginning of ) *Growth US @ 32 wks *Weekly NSTs @ 36wks Gestational Diabetes Growth u/s's q 4 weeks Allergies Allergy/AdvReac Type Severity Reaction Status Date / Time amoxicillin Allergy Hives Verified 01/26/24 13:14 Home Medications Medication Instructions Recorded Confirmed Type vitamins no.144-folic 2 tab PO DAILY 12/14/21 02/03/24 History acid 400 mcg chewable tablet () escitalopram oxalate 20 mg tablet 20 mg PO DAILY #90 tabs 10/23/23 02/03/24 Rx (Lexapro) acetone (urine) test (Ketone Urine #50 ea 12/15/23 02/02/24 Rx Test strips) lancets 33 gauge (OneTouch Delica #150 ea 12/15/23 02/02/24 Rx Plus Lancet) blood sugar diagnostic (FreeStyle #400 ea 12/16/23 02/02/24 Rx Lite Strips) blood-glucose meter (FreeStyle #1 ea 12/16/23 02/02/24 Rx [place] Lite kit) lancets 28 gauge (FreeStyle #100 ea 12/18/23 02/02/24 Rx Lancets) Patient History Medical History (Updated 02/03/24 @ 10:10 by Anahi Castorena DO) Cervical incompetence Varicella vaccination Abnormal uterine bleeding (AUB) demise Threatened labor, antepartum Surgical History History of cervical cerclage S/P tonsillectomy [place] teeth removed 2017 Hx of shoulder surgery right shoulder 2015 Family History (Updated 06/13/23 @ 15:21 by Nikki Bazan, SANDER) Grandfather (Maternal) Diabetes Father Hypertension Denies family history of Ovarian cancer Prostate cancer Myocardial infarction Breast cancer Colorectal cancer Social History (Updated 06/13/23 @ 15:16 by Nikki Bazan, SANDER) Smoking Status: Never smoker Second Hand Exposure: No; Do You Dip or Chew Tobacco: No; Hx Alcohol Use: No Hx Substance Use: No Preferred Language: Nepalese Communication Ability: Effective Engraver Lettering Required: No Beliefs That Will Affect Care: None marital status: marital status details: Skyler Avila (24) [phone] Current Living Situation: Spouse Current Living Situation Comment: Lives with spouse, 1 rabbit current occupational status: employed current occupation: riding teacher Other Information That Helps Us Care for You: No Feels Safe at Home: Yes Safety Concerns: Feels Safe At This Time Childhood Exposure to Second-Hand Smoke: No Diet: regular caffeine: No Dental Care, Regularly: Yes Seatbelt Use: always Sunscreen Use: Yes Assistive Devices: None Review of Systems All systems reviewed & are unremarkable except as noted in HPI & below Physical Exam Physical Exam: FHT Cat 1 [place] Q 2 SVE 8/100/0 Constitutional: WD/WN, vitals as above Respiratory: normal respiratory effort, lungs clear to auscultation no respiratory distress Cardiovascular: Rate/Rhythm: regular rate and regular rhythm Gastrointestinal (Abdomen): Inspection/Auscultation: abdomen normal to inspection Percussion/Palpation: abdomen soft; abdomen nontender Gravid. No s/s chorio or abruption. Skin: no rashes, warm and dry Psychiatric: A+Ox3, euthymic affect Results & Data Vital Signs (Past 12 Hours) Vital Signs Temp Pulse Resp BP 02/03/24 09:33 36.8 C 20 02/03/24 09:25 82 123/86 Coding Level of Care Code None Diagnoses Z34.90
--- NOTE | 2024-02-03 10:19 | Anesthesiology Consultation ---
Date of Service February 03, 2024 Assessment & Plan (1) Encounter for pre-operative examination: Chart Review Chart Review: Acceptable Risk for Labor Epidural History Height/Weight Height: 5 ft 7 in Weight: 118.841 kg Allergies Allergy/AdvReac Type Severity Reaction Status Date / Time amoxicillin Allergy Hives Verified 01/26/24 13:14 Medications Home Medications Medication Instructions Recorded Confirmed Last Taken vitamins no.144-folic 2 tab PO DAILY 12/14/21 02/03/24 02/02/24 acid 400 mcg chewable tablet () escitalopram oxalate 20 mg tablet 20 mg PO DAILY #90 tabs 10/23/23 02/03/24 02/03/24 (Lexapro) acetone (urine) test (Ketone Urine #50 ea 12/15/23 02/02/24 Unknown Test strips) lancets 33 gauge (OneTouch Delica #150 ea 12/15/23 02/02/24 Unknown Plus Lancet) blood sugar diagnostic (FreeStyle #400 ea 12/16/23 02/02/24 Unknown Lite Strips) blood-glucose meter (FreeStyle #1 ea 12/16/23 02/02/24 Unknown [place] Lite kit) lancets 28 gauge (FreeStyle #100 ea 12/18/23 02/02/24 Unknown Lancets) Active Medications Generic Name Dose Route Start Last Admin Trade Name Freq PRN Reason Stop Dose Admin Sodium Chloride 1,000 mls @ 50 mls/hr 02/03/24 10:15 02/03/24 10:05 Nss IV 02/04/24 10:14 999 mls/hr .Q20H MAXIMO Administration Past Medical History Medical History Cervical incompetence Varicella vaccination Abnormal uterine bleeding (AUB) demise Threatened labor, antepartum Past Family History Family History Grandfather (Maternal) Diabetes Father Hypertension Denies family history of Ovarian cancer Prostate cancer Myocardial infarction Breast cancer Colorectal cancer Past Surgical History Surgical History History of cervical cerclage S/P tonsillectomy [place] teeth removed 2016 Hx of shoulder surgery right shoulder 2014 Social History Smoking Status: Never smoker Do You Dip or Chew Tobacco: No Hx Alcohol Use: No Hx Substance Use: No Physical Exam Vital Signs Last Vital Signs Temp 36.8 C 02/03/24 09:33 Pulse 86 02/03/24 10:11 Resp 20 02/03/24 09:33 BP 123/86 02/03/24 09:25 Pulse Ox 98 02/03/24 10:11 Testing Laboratory Results 02/03/24 09:59 POC Glucose 94 labs pending
[2024-02-03 10:30] LABS: Hemoglobin 13.8 g/dl (12.0-16.0); Mean Corpuscular Hemoglobin 30.5 pg (25.0-34.0); Mean Corpuscular Hgb Conc 33.7 g/dL (32.0-36.0); Mean Corpuscular Volume 90.7 fL (80.0-100.0); Mean Platelet Volume 11.9 fL (9.4-12.4); Platelet Count 169 K/uL (130-400); RDW Standard Deviation 46.7 fL (36.4-46.3); Red Blood Count 4.52 M/uL (4.20-5.40); White Blood Count 10.95 K/ul (4.8-10.8)
[2024-02-03] MEDS: fentANYL 2 MCG/ML BUPIVacaine 0.125%-NSS 100ML BAG ONE (10:36)
[2024-02-03] MEDS: BUPIVACAINE 0.25% PF 30 ML VIAL ONE (10:45)
[2024-02-03] MEDS: fentaNYL citrate PF 100 MCG/2 ML VIAL ONE (10:45)
[2024-02-03] MEDS: LIDOCAINE 2%/EPINEPHRINE 1:200,000 20 ML PF ONE (10:49)
[2024-02-03] MEDS ORDERED: ePHEDrine sulfate 50 MG/ML AMP IV PRN (10:52)
[2024-02-03] MEDS ORDERED: ONDANSETRON INJ 2 MG/ML 2 ML VIAL IV PRN (10:52)
[2024-02-03] MEDS ORDERED: ROPIVACAINE 0.5% PF 5 MG/ML 20 ML VIAL EPI PRN (10:52)
[2024-02-03] MEDS ORDERED: LIDOCAINE 2% MPF LOCAL 5 ML VIAL EPI PRN (10:52)
[2024-02-03] MEDS ORDERED: NALOXONE HCL 0.4 MG/1 ML VIAL/CARP IV PRN (10:52)
[2024-02-03] MEDS ORDERED: NALOXONE HCL 1 MG in SODIUM CHLORIDE 0.9% 1,000 ML IV PRN (10:52)
[2024-02-03] MEDS ORDERED: SODIUM CHLORIDE 0.9% PF INJ 10 ML VIAL EPI PRN (10:52)
[2024-02-03] MEDS ORDERED: BUPIVACAINE 0.25% PF 30 ML VIAL EPI PRN (10:52)
[2024-02-03] MEDS ORDERED: fentaNYL citrate PF 100 MCG/2 ML VIAL EPI PRN (10:52)
[2024-02-03] MEDS: SODIUM CHLORIDE 0.9% PF INJ 10 ML VIAL ONE (12:13)
[2024-02-03] MEDS: BUPIVACAINE 0.25% PF 30 ML VIAL EPI STA (12:13)
[2024-02-03] MEDS: fentaNYL citrate PF 100 MCG/2 ML VIAL EPI STA (12:13)
[2024-02-03] MEDS: LIDOCAINE 2%/EPINEPHRINE 1:200,000 20 ML PF EPI STA (12:14)
[2024-02-03] MEDS: SODIUM CHLORIDE 0.9% PF INJ 10 ML VIAL EPI STA (12:14)
[2024-02-03] MEDS ORDERED: NURSING L&D Epidural Breakthrough Pain Update ONE (12:26)
[2024-02-03] MEDS ORDERED: ROPIVACAINE 0.5% 5 MG/ML 30 ML VIAL ONE (12:32)
[2024-02-03] MEDS ORDERED: LIDOCAINE 2%/EPINEPHRINE 1:200,000 20 ML PF ONE (12:32)
--- NOTE | 2024-02-03 12:39 | Anesthesia Procedure Note ---
Date of Service February 03, 2024 Anesthesia Epidural Re-Dose Vital Signs Temp Pulse Resp BP Pulse Ox 37.4 C 79 20 112/57 L 96 02/03/24 12:00 02/03/24 12:36 02/03/24 12:00 02/03/24 12:35 02/03/24 12:36 Notes Pain Intensity: 9 Dilatation (cm): 9.0 Effacement (%): 100 Called by nursing to evaluate epidural as the patient is having increased pain. The epidural was re-dosed with the following medications (all medications via epidural route) after negative aspiration of the epidural catheter for CSF/HEME 1.2% lidocaine and 0.2% ropivacaine 6ml After Epidural Re-Dose Mental Status: alert / awake / arousable Pain: improving with treatment Airway Patency, RR, SpO2: stable & adequate BP & HR: stable & adequate
--- NOTE | 2024-02-03 12:47 | Anesthesia Procedure Note ---
Date of Service February 03, 2024 Anesthesia Epidural Re-Dose Vital Signs Temp Pulse Resp BP Pulse Ox 37.4 C 71 20 117/56 L 96 02/03/24 12:00 02/03/24 12:46 02/03/24 12:00 02/03/24 12:45 02/03/24 12:46 Notes Pain Intensity: 9 Dilatation (cm): 9.0 Effacement (%): 100 Called by nursing to evaluate epidural as the patient is having increased pain. The epidural was re-dosed with the following medications (all medications via epidural route) after negative aspiration of the epidural catheter for CSF/HEME 1.2% lidocaine and 0.2% ropivacaine 8ml After Epidural Re-Dose Mental Status: alert / awake / arousable Pain: improving with treatment Airway Patency, RR, SpO2: stable & adequate BP & HR: stable & adequate
--- NOTE | 2024-02-03 14:09 | Labor Progress Brief Note ---
Date of Service February 03, 2024 Subjective Comfortable with epidural redose. FHT Cat 1 [place] Q 2 10/100/0, AROM clear fluid forebag Results & Data Vital Signs (Past 12 Hours) Vital Signs Temp Pulse Resp BP Pulse Ox 02/03/24 14:01 97 02/03/24 14:01 81 02/03/24 13:56 89 L 02/03/24 13:56 84 02/03/24 13:52 73 02/03/24 13:52 116/70 02/03/24 13:51 98 02/03/24 13:51 73 02/03/24 13:46 97 02/03/24 13:46 75 02/03/24 13:41 98 02/03/24 13:41 78 02/03/24 13:37 90 02/03/24 13:37 116/78 02/03/24 13:36 98 02/03/24 13:36 80 02/03/24 13:33 86 L 02/03/24 13:33 70 02/03/24 13:31 97 02/03/24 13:31 72 02/03/24 13:30 20 02/03/24 13:30 20 02/03/24 13:26 100 02/03/24 13:26 79 02/03/24 13:22 76 02/03/24 13:22 119/70 02/03/24 13:21 98 02/03/24 13:21 81 02/03/24 13:16 97 02/03/24 13:16 77 02/03/24 13:11 97 02/03/24 13:11 80 02/03/24 13:07 78 02/03/24 13:07 123/74 02/03/24 13:06 98 02/03/24 13:06 89 02/03/24 13:01 98 02/03/24 13:01 82 02/03/24 12:59 93 02/03/24 12:59 78 02/03/24 12:58 67 02/03/24 12:58 112/56 L 02/03/24 12:56 98 02/03/24 12:56 72 02/03/24 12:53 68 02/03/24 12:53 105/55 L 02/03/24 12:51 96 02/03/24 12:51 69 02/03/24 12:46 96 02/03/24 12:46 71 02/03/24 12:45 75 02/03/24 12:45 117/56 L 02/03/24 12:43 80 02/03/24 12:43 112/55 L 02/03/24 12:41 95 02/03/24 12:41 71 02/03/24 12:41 119/60 02/03/24 12:39 76 02/03/24 12:39 125/58 L 02/03/24 12:38 68 02/03/24 12:38 124/59 L 02/03/24 12:36 96 02/03/24 12:36 79 02/03/24 12:35 68 02/03/24 12:35 112/57 L 02/03/24 12:32 94 02/03/24 12:32 70 02/03/24 12:31 97 02/03/24 12:31 75 02/03/24 12:26 97 02/03/24 12:26 74 02/03/24 12:24 72 02/03/24 12:24 110/58 L 02/03/24 12:21 96 02/03/24 12:21 74 02/03/24 12:16 95 02/03/24 12:16 68 02/03/24 12:11 97 02/03/24 12:11 77 02/03/24 12:10 69 02/03/24 12:10 122/62 02/03/24 12:06 95 02/03/24 12:06 72 02/03/24 12:01 95 02/03/24 12:01 71 02/03/24 12:00 20 02/03/24 12:00 37.4 C 20 02/03/24 11:56 96 02/03/24 11:56 86 02/03/24 11:54 73 02/03/24 11:54 119/57 L 02/03/24 11:51 95 02/03/24 11:51 74 02/03/24 11:46 95 02/03/24 11:46 86 02/03/24 11:41 97 02/03/24 11:41 86 02/03/24 11:36 96 02/03/24 11:36 86 02/03/24 11:33 76 02/03/24 11:33 131/79 02/03/24 11:31 97 02/03/24 11:31 82 02/03/24 11:30 20 02/03/24 11:30 20 02/03/24 11:29 76 02/03/24 11:29 131/81 02/03/24 11:26 96 02/03/24 11:26 73 02/03/24 11:23 84 02/03/24 11:23 120/77 02/03/24 11:21 97 02/03/24 11:21 83 02/03/24 11:20 81 02/03/24 11:20 130/81 02/03/24 11:16 96 02/03/24 11:16 82 02/03/24 11:14 83 02/03/24 11:14 130/76 02/03/24 11:11 97 02/03/24 11:11 90 02/03/24 11:08 83 02/03/24 11:08 126/75 02/03/24 11:06 98 02/03/24 11:06 87 02/03/24 11:04 82 02/03/24 11:04 130/79 02/03/24 11:02 20 02/03/24 11:02 20 02/03/24 11:01 98 02/03/24 11:01 85 02/03/24 11:00 20 02/03/24 11:00 20 02/03/24 10:58 20 02/03/24 10:58 20 02/03/24 10:57 84 02/03/24 10:57 132/79 02/03/24 10:56 97 02/03/24 10:56 81 02/03/24 10:55 82 02/03/24 10:55 125/77 02/03/24 10:54 78 02/03/24 10:54 123/71 02/03/24 10:53 20 02/03/24 10:53 20 02/03/24 10:52 84 02/03/24 10:52 133/80 02/03/24 10:51 97 02/03/24 10:51 86 02/03/24 10:50 79 02/03/24 10:50 131/80 02/03/24 10:47 80 02/03/24 10:47 128/75 02/03/24 10:46 97 02/03/24 10:46 83 02/03/24 10:44 92 H 02/03/24 10:44 142/94 H 02/03/24 10:41 98 02/03/24 10:41 98 H 02/03/24 10:39 92 02/03/24 10:39 89 02/03/24 10:36 99 02/03/24 10:36 93 H 02/03/24 10:31 97 02/03/24 10:31 81 02/03/24 10:30 22 02/03/24 10:30 22 02/03/24 10:26 97 02/03/24 10:26 86 02/03/24 10:21 98 02/03/24 10:21 85 02/03/24 10:16 97 02/03/24 10:16 88 02/03/24 10:11 98 02/03/24 10:11 86 02/03/24 09:33 36.8 C 20 02/03/24 09:25 82 123/86 Coding Level of Care Code None
[2024-02-03] MEDS: OXYTOCIN 30 UNITS/NSS 30 UNITS/500 ML BAG IV PRN (15:11)
[2024-02-03] MEDS: fentANYL 2 MCG/ML BUPIVacaine 0.125%-NSS 100ML BAG EPI PRN (15:40)
[2024-02-03] MEDS: ePHEDrine sulfate 50 MG/ML AMP ONE (16:30)
--- NOTE | 2024-02-03 16:51 | Delivery Summary ---
Vaginal Delivery Summary Date of Service February 03, 2024 Vaginal Delivery Summary and 2nd Degree LAC Vaginal Delivery Summary: Pre-delivery diagnoses: 28yo @ 39 02/23, spontaneous labor, obesity, rubella immune, GDMA1 Post-delivery diagnoses: same Procedure: spontaneous vaginal delivery Surgeon: Anahi Castorena DO Complications: none Findings: Viable female . Apgars: 8/9. Weight pending, please see nursery records Estimated QBL: 164cc Description of delivery: The patient progressed to complete with epidural anesthesia. She then began to push. She spontaneously vaginally delivered a viable from the cephalic presentation. The head delivered in CHRIS position. The anterior shoulder delivered, followed by the posterior shoulder, followed by the body. The baby was placed on mother's abdomen and a spontaneous cry was heard. No nuchal. Delayed cord clamping was employed, and the cord was doubly clamped and cut. Cord blood was obtained. The placenta was delivered spontaneously intact with a 3-vessel cord. The uterus and vagina were swept of clots and debris. IV pitocin was given. The uterus became firm. The cervix, vagina, and perineum were inspected and 2nd degree perineal laceration noted and repaired with 3-0 Vicryl in standard fashion. Excellent hemostasis was observed. The mother and baby are recovering in stable and good condition in the room. Sponge, needle, and instrument counts were correct x 2. Anahi Castorena DO [facility] Vaginal Delivery Charge Vaginal Delivery Codes: 88870 global code for the antepartum, delivery, and post - Delivery Type Details: and 2nd Degree LAC
[2024-02-03] MEDS ORDERED: oxyCODONE/ACETAMINOPHEN 5mg/325mg TAB PO PRN (17:01)
[2024-02-03] MEDS ORDERED: bisacodyL 10 MG SUPP PR PRN (17:01)
[2024-02-03] MEDS ORDERED: HYDROCORTISONE ACETATE 25 MG SUPP PR PRN (17:01)
[2024-02-03] MEDS ORDERED: ACETAMINOPHEN 325 MG TAB PO PRN (17:01)
--- NOTE | 2024-02-03 17:08 | Anesthesia Procedure Note ---
Date of Service February 03, 2024 Anesthesia Post Epidural Note Vital Signs Vital Signs: Temp Pulse Resp BP Pulse Ox 37.4 C 86 20 134/70 96 02/03/24 12:00 02/03/24 17:05 02/03/24 15:30 02/03/24 17:05 02/03/24 16:37 Pain Intensity Lower Back: Pain Intensity: 9 Notes Mental Status: alert / awake / arousable and participated in evaluation Nausea / Vomiting: adequately controlled Pain: adequately controlled Airway Patency, RR, SpO2: stable & adequate BP & HR: stable & adequate Hydration State: stable & adequate Neuraxial Anesthesia: was administered and sensory block is resolving Anesthetic Complications: no major complications apparent Epidural: Removed without complications and With tip intact
[2024-02-03] MEDS: IBUPROFEN 600 MG TAB PO PRN (18:40)
[2024-02-03] MEDS: BENZOCAINE 20% SPRY 85 APPLN/85 GM CAN EXT PRN (18:58)
[2024-02-03] MEDS: DOCUSATE SODIUM 100 MG CAP PO SCH (19:30)
--- NOTE | 2024-02-04 05:53 | Obstetrical Progress Note ---
Date of Service February 04, 2024 Assessment & Plan (1) Vaginal delivery: Plan: Both mom and baby doing well. Admission and Anticipated Discharge Date Admission Date: February 03, 2024 Supervising Physician Co-Signing Physician Notes Resident Physician Supervision Note: I interviewed and examined the patient. Discussed with Dr. Mae and agree with findings and plan as documented in the note. Any exceptions or clarifications are listed here: PPD#1 doing well, anticipate DC home tomorrow. Documented By: Anahi Castorena, Subjective 1st PP Day following in 28 years years at term. No active complains Both mom and baby doing well. Pain: Mild, intermittent Lochia: Moderate Diet: Regular Ob diet Gas: Passed Peeing: Normal, no bladder distension Ambulation: Normally Review of Systems Review of Systems: No SOB, chest pain, leg pain No dizziness, headache, palpitation No Blurring of vision , fever Physical Exam Physical Exam: General: Alert and oriented. No acute distress. CVS: S1 S2+ No murmurs, regular rhythm. Respiratory: CTA bilaterally. No rhonchi, wheezes, or crackles. No increased work of breathing. Abdomen: Bowel sound +. Soft, nontender Uterus: Fundus firm and palpable few cm below the umbilicus. Lower extremities: No LE edema. No deep calf pain. Results & Data Vital Signs (Past 12 Hours) Vital Signs Temp Pulse Pulse Resp BP BP Pulse Ox 02/04/24 03:20 37.1 C 90 16 120/76 98 02/03/24 23:00 36.7 C 83 16 114/69 96 02/03/24 19:30 37.4 C 99 H 16 132/83 97 02/03/24 18:50 104 H 02/03/24 18:50 123/75 02/03/24 18:35 93 H 02/03/24 18:35 124/67 02/03/24 18:20 20 02/03/24 18:20 93 H 02/03/24 18:20 127/72 02/03/24 18:05 95 H 02/03/24 18:05 126/68 O2 Del Method 02/04/24 03:20 Room Air 02/03/24 23:00 Room Air 02/03/24 19:30 Room Air 02/03/24 18:50 02/03/24 18:50 02/03/24 18:35 02/03/24 18:35 02/03/24 18:20 02/03/24 18:20 02/03/24 18:20 02/03/24 18:05 02/03/24 18:05 Resident Activity Tracking Resident Involvement: Resident Care Provided Care Provided: OB Delivery
[2024-02-04 06:52] LABS: Hematocrit (blood only) 34.9 % (37.0-47.0); Hemoglobin 11.7 g/dl (12.0-16.0)
[2024-02-04] MEDS: PRENATAL VITAMIN 1 TAB PO SCH (07:48)
[2024-02-04] MEDS: ESCITALOPRAM OXALATE 20 MG TAB PO SCH (07:49)
[2024-02-04] MEDS: DIPHTHER/TETAN/PERTUS Vaccine (Tdap, Adol/Adult) 0.5mL IM ONE (07:50)
[2024-02-04 08:51] VITALS: RESP 18
[2024-02-04] MEDS: MEASLES, MUMPS & RUBELLA VIRUS VACCINE (MMR) 0.5ML VIAL SQ ONE (10:32)
[2024-02-04] MEDS: bisacodyL 5 MG TABEC PO SCH (20:53)
[2024-02-04 23:43] VITALS: O2SAT 98
--- NOTE | 2024-02-05 07:01 | Obstetrical Progress Note ---
Date of Service February 05, 2024 Assessment & Plan (1) Vaginal delivery: Plan: Both mom and baby doing well. Can Discharge today, ready for discharge. Admission and Anticipated Discharge Date Admission Date: February 03, 2024 Supervising Physician Co-Signing Physician Notes Resident Physician Supervision Note: I interviewed and examined the patient. Discussed with Dr. Mae and agree with findings and plan as documented in the note. Any exceptions or clarifications are listed here: [None] Documented By: Jahaira Mathur MD, FACOG Subjective 2nd PP Day following in 28 years years at term. No active complains Both mom and baby doing well. Pain: Mild, intermittent Lochia: Moderate Diet: Regular Ob diet Gas: Passed Peeing: Normal, no bladder distension Ambulation: Normally Review of Systems Review of Systems: No SOB, chest pain, leg pain No dizziness, headache, palpitation No Blurring of vision , fever Physical Exam Physical Exam: General: Alert and oriented. No acute distress. CVS: S1 S2+ No murmurs, regular rhythm. Respiratory: CTA bilaterally. No rhonchi, wheezes, or crackles. No increased work of breathing. Abdomen: Bowel sound +. Soft, nontender Uterus: Fundus firm and palpable few cm below the umbilicus. Lower extremities: No LE edema. No deep calf pain. Results & Data Vital Signs (Past 12 Hours) Vital Signs Temp Pulse Resp BP Pulse Ox O2 Del Method 02/04/24 23:30 36.5 C 86 18 138/75 98 Room Air 02/04/24 20:40 36.8 C 87 18 129/78 97 Room Air Resident Activity Tracking Resident Involvement: Resident Care Provided Care Provided: OB Delivery
[2024-02-05 10:21] VITALS: BP 127/85; PULSE 87; TEMP 98.4
== END 2024-02-05 13:00 | disposition home or self-care (01) | DRG 807 ==
LOC: OPB 09:14 → 4S1 09:16 → 4E2 19:25